=== PATIENT | female | born 1950 | race Caucasian/White ===

== ENCOUNTER 2017-01-08 18:40 | Emergency (ER) | payer MEDICARE, OTHER ==
[~2017-01-08] VITALS: Ht 154.9 cm; Wt 47.0 kg
[~2017-01-08 18:40] MED LIST: ASPI81TA82 PO; CARV6.25 PO; LEVA0.6316; LISI-357 PO; SIMV10 PO; SPIRCAP INH; TYLE500T PO; XOPEAER4 INH
[2017-01-08 18:42] VITALS: BP 198/116; PULSE 84; RESP 19; TEMP 98.5; O2SAT 99
[2017-01-08 19:03] VITALS: BP 167/97; PULSE 76; RESP 20; O2SAT 98
[2017-01-08] MEDS ORDERED: TIOT1AER2 INH (19:11)
[2017-01-08] MEDS ORDERED: ASPI81CH CHEW (19:11)
[2017-01-08] MEDS ORDERED: CLON0.1T PO (19:11)
[2017-01-08] MEDS ORDERED: ALPR.25 PO (19:11)
[2017-01-08] MEDS ORDERED: LISI-515 PO (19:11)
[2017-01-08] MEDS ORDERED: PRAV40TA2 PO (19:11)
--- NOTE | 2017-01-08 20:01 | PD ---
HPI Chief Complaint: Hypertension Time Seen by Provider: 19:46 Travel History International Travel<30 days: No Contact w/Intl Traveler<30days: No Traveled to known affect area: No History of Present Illness HPI 66 y/o female presents with elevated blood pressure as an outpatient. She states she called her doctor and they advised her to increase her lisinopril from 10mg twice a day to 20mg twice a day and use her clonidine as needed. she states she took the higher dose of lisinopril and her pressure was still up so she took the clonidine and her friend wanted her to get checked out. Here her pressure is better and she denies any concerns now or when her pressure was higher. She states 2 years ago she had a normal heart catheter and follows with dr matamoros regularly. quality is elevated. severity at home in the 200s PFSH Past Medical History Hx Anticoagulant Therapy: Yes (ASA 81MG) Heart Rhythm Problems: No Cancer: Yes (left/ lt mast) Cardiovascular Problems: Yes (HTN) High Cholesterol: Yes Chest Pain: Yes Congestive Heart Failure: No COPD: Yes Diabetes: No Diminished Hearing: No Endocrine: No Genitourinary: No Hypertension: Yes Musculoskeletal: No Neurologic: No Psychiatric: No Reproductive: No Respiratory: Yes Past Surgical History Hysterectomy: Yes Mastectomy: Yes (left) Tonsillectomy: Yes Other Surgery: Yes (breast augmentation) Social History Alcohol Use: No (Rarely) Tobacco Use: Yes (1 PPD) Substance Use: No Allergies-Medications (Allergen,Severity, Reaction): Coded Allergies: codeine (Unverified Allergy, Severe, Rash, 01/08/17) Reported Meds & Prescriptions Reported Meds & Active Scripts Active Aspir-81 (Aspirin) 81 Mg Tab 81 Mg PO DAILY Reported Clonidine (Clonidine HCl) 0.1 Mg Tab 0.1 Mg PO TID PRN Xanax (Alprazolam) 0.25 Mg Tab 0.25 Mg PO DAILY PRN Aspirin 81 Mg Chew 81 Mg CHEW DIRECTED Spiriva Respimat Inh (Tiotropium Inh) 1.25 Mcg/Act Aero 1 Puff INH DAILY 1.25 mcg = 1 inhalation Pravastatin 40 Mg Tab 40 Mg PO HS Lisinopril 20 Mg Tab 20 Mg PO BID Xopenex (Levalbuterol Hydrochloride) 0.63 Mg/3 Ml Neb 1 Xopenex Hfa (Levalbuterol) 15 Gm Aero 2 Puff INH Q4 Acetaminophen 500 Mg Tab 500 Mg PO Q6H Lisinopril 5 mg (Lisinopril) 5 Mg Tab 1 Tab PO BID Coreg 6.25 mg (Carvedilol) 6.25 Mg Tab 1 Tab PO BID Simvastatin 10 mg (Simvastatin) 10 Mg Tab 10 Tab PO DAILY Spiriva Handihaler (Tiotropium [place]) 18 Mcg Cap 1 Puff INH DAILY DO NOT SWALLOW CAPSULES Review of Systems Except as stated in HPI: all other systems reviewed are Neg Physical Exam Narrative GENERAL: Well-nourished, well-developed patient. SKIN: Warm and dry. HEAD: Normocephalic and atraumatic. EYES: No injection or drainage. ENT: No nasal drainage noted. NECK: Supple, trachea midline. CARDIOVASCULAR: Regular rate and rhythm RESPIRATORY: Breath sounds equal bilaterally. No accessory muscle use. GASTROINTESTINAL: Abdomen soft, non-tender, nondistended. EXTREMITIES: No edema. NEUROLOGICAL: Awake and alert. Motor and sensory grossly within normal limits. Normal speech. Data Data Last Documented VS Vital Signs Date Time Temp Pulse Resp B/P (MAP) Pulse Ox O2 Delivery O2 Flow Rate FiO2 01/08/17 20:18 75 16 138/81 (100) 97 Blow-by 01/08/17 18:42 98.5 MDM Medical Decision Making Medical Screen Exam Complete: Yes Emergency Medical Condition: Yes Medical Record Reviewed: Yes (pmh confirmed) Differential Diagnosis elevated pressure, machine error, renal dysfunction... Narrative Course lengthy discussion with patient and states recently had labwork at the end of last month that was normal and wanting to go now that her pressure is better here, given she has no symptoms she can go and monitor her blood pressure, given return instructions as she is not wanting further testing her Diagnosis Primary Impression: Hypertension Qualified Codes: I10 - Essential (primary) hypertension Patient Instructions: General Instructions Additional Instructions: keep blood pressure log, return as needed, follow with primary tommorrow Med/Other Pt SpecificInfo: No Change to Meds Disposition: 01 DISCHARGE HOME Condition: Stable Bette Lizarraga MD Jan 08, 2017 20:01
[2017-01-08 20:18] VITALS: BP 138/81
== END 2017-01-08 20:20 | disposition home or self-care (01) ==
LOC: NEPC 18:40
DX: I10 Essential (primary) hypertension (principal); F17.200 Nicotine dependence, unspecified, uncomplicated; J44.9 Chronic obstructive pulmonary disease, unspecified
CPT/HCPCS: 99281

== ENCOUNTER 2017-02-10 14:18 | Emergency (ER) | payer MEDICARE, OTHER ==
[~2017-02-10] VITALS: Ht 154.9 cm; Wt 47.0 kg
[~2017-02-10 14:18] MED LIST changes: +ALPR.25 PO; +ASPI81CH CHEW; +CLON0.1T PO; +LISI-515 PO; +PRAV40TA2 PO; +TIOT1AER2 INH
[2017-02-10 14:22] VITALS: BP 182/95; PULSE 68; RESP 16; TEMP 98.9; O2SAT 93
--- NOTE | 2017-02-10 14:27 | PD ---
Physical Exam Date Seen by Provider: Feb 10, 2017 Time Seen by Provider: 14:26 Narrative 66 yo female here for high BP. Per patient her head feels funny. No chest pain, but feels like her pressure is high. History of AAA of 3 cm. States her abdomen feels funny but had no pain or dizzyness. No SOB. No trauma. Vitals are stable in triage with elevated BP in the 180s. Awaiting bed placement. Data Data Last Documented VS Vital Signs Date Time Temp Pulse Resp B/P (MAP) Pulse Ox O2 Delivery O2 Flow Rate FiO2 02/10/17 14:22 98.9 68 16 182/95 (124) 93 Room Air [facility] Medical Record Reviewed: Yes Supervised Visit with RUFINO: No Fabricio De La Cruz Feb 10, 2017 14:27
[2017-02-10] MEDS ORDERED: LABETALOL HCL 100 MG/20 ML VIAL IV PUSH ONE ×2 (15:15→17:00)
[2017-02-10] MEDS ORDERED: ACETAMINOPHEN 325 MG TAB PO ONE (15:15)
--- NOTE | 2017-02-10 15:21 | PD ---
HPI Chief Complaint: Hypertension Time Seen by Provider: 15:05 Travel History International Travel<30 days: No Contact w/Intl Traveler<30days: No Traveled to known affect area: No History of Present Illness HPI This is a 66-year-old female with history of hypertension, hyperlipidemia, known 3 cm AAA, presents for evaluation of hypertension. She reports that recently her financial assistant Dr. Hernandez has been attempting to get her blood pressure under tighter control. Currently she is on a regimen of Coreg 25 mg bid as well as Cozaar which was prescribed 50 mg bid. She was recently discontinued from lisinopril. She takes clonidine as needed. She reports that she is currently using Cozaar only 50 mg once a day because her pharmacist told her that 50 mg twice a day was too much. She is complaining of a generalized head pressure which started yesterday. She reports that she gets this type of head pain when her blood pressure goes over 160 systolic which happens frequently. She denies nausea, vomiting, blurred vision, weakness, chest pain, shortness of breath. She has mild lower abdominal discomfort which she reports is from "nerves" but denies overt pain. She denies dysuria, flank pain, fevers or chills. She has no other complaints at this time. PFSH Past Medical History Hx Anticoagulant Therapy: Yes (ASA 81MG) Heart Rhythm Problems: No Cancer: Yes (left/ lt mast) Cardiovascular Problems: Yes (HTN) High Cholesterol: Yes Chest Pain: Yes Congestive Heart Failure: No COPD: Yes Diabetes: No Diminished Hearing: No Endocrine: No Genitourinary: No Hypertension: Yes Musculoskeletal: No Neurologic: No Psychiatric: No Reproductive: No Respiratory: Yes ?: Not Past Surgical History Hysterectomy: Yes Mastectomy: Yes (left) Tonsillectomy: Yes Other Surgery: Yes (breast augmentation) Social History Alcohol Use: No (Rarely) Tobacco Use: Yes (1 PPD) Substance Use: No Allergies-Medications (Allergen,Severity, Reaction): Coded Allergies: codeine (Unverified Allergy, Severe, Rash, 02/10/17) Reported Meds & Prescriptions Reported Meds & Active Scripts Active Aspir-81 (Aspirin) 81 Mg Tab 81 Mg PO DAILY Reported Clonidine (Clonidine HCl) 0.1 Mg Tab 0.1 Mg PO TID PRN Xanax (Alprazolam) 0.25 Mg Tab 0.25 Mg PO DAILY PRN Aspirin 81 Mg Chew 81 Mg CHEW DIRECTED Spiriva Respimat Inh (Tiotropium Inh) 1.25 Mcg/Act Aero 1 Puff INH DAILY 1.25 mcg = 1 inhalation Pravastatin 40 Mg Tab 40 Mg PO HS Lisinopril 20 Mg Tab 20 Mg PO BID Xopenex (Levalbuterol Hydrochloride) 0.63 Mg/3 Ml Neb 1 Xopenex Hfa (Levalbuterol) 15 Gm Aero 2 Puff INH Q4 Acetaminophen 500 Mg Tab 500 Mg PO Q6H Lisinopril 5 mg (Lisinopril) 5 Mg Tab 1 Tab PO BID Coreg 6.25 mg (Carvedilol) 6.25 Mg Tab 1 Tab PO BID Simvastatin 10 mg (Simvastatin) 10 Mg Tab 10 Tab PO DAILY Spiriva Handihaler (Tiotropium [place]) 18 Mcg Cap 1 Puff INH DAILY DO NOT SWALLOW CAPSULES Review of Systems Except as stated in HPI: all other systems reviewed are Neg Physical Exam Narrative GENERAL: Pleasant well-developed well-nourished female in no acute distress resting currently on hospital bed. Vital signs reviewed. SKIN: Warm and dry. HEAD: Atraumatic. Normocephalic. EYES: Pupils equal and round. No scleral icterus. No injection or drainage. ENT: No nasal bleeding or discharge. Mucous membranes pink and moist. NECK: Trachea midline. No JVD. CARDIOVASCULAR: Regular rate and rhythm. No murmur appreciated. RESPIRATORY: No accessory muscle use. Clear to auscultation. Breath sounds equal bilaterally. GASTROINTESTINAL: Abdomen soft, non-tender, nondistended. Hepatic and splenic margins not palpable. No palpable pulsatile masses. MUSCULOSKELETAL: No obvious deformities. No edema. NEUROLOGICAL: Awake and alert. No obvious cranial nerve deficits. Motor grossly within normal limits. Normal speech. PSYCHIATRIC: Appropriate mood and affect; insight and judgment normal. Data Data Last Documented VS Vital Signs Date Time Temp Pulse Resp B/P (MAP) Pulse Ox O2 Delivery O2 Flow Rate FiO2 02/10/17 17:14 79 16 180/94 (122) 98 Room Air 02/10/17 14:22 98.9 Orders Orders Chest, Pa & Lat (02/10/17 14:27) Complete Blood Count With Diff (02/10/17 15:13) Comprehensive Metabolic Panel (02/10/17 15:13) Lipase (02/10/17 15:13) Urinalysis - C+S If Indicated (02/10/17 15:13) Electrocardiogram (02/10/17 15:13) Ct Brain W/O Iv Contrast(Rout) (02/10/17 ) Labetalol Inj (Trandate Inj) (02/10/17 15:15) Acetaminophen (Tylenol) (02/10/17 15:15) Labetalol Inj (Trandate Inj) (02/10/17 17:00) Labs Laboratory Tests Test 02/10/17 15:50 White Blood Count 5.5 TH/MM3 Red Blood Count 3.77 MIL/MM3 Hemoglobin 12.9 GM/DL Hematocrit 36.3 % Mean Corpuscular Volume 96.3 FL Mean Corpuscular Hemoglobin 34.2 PG Mean Corpuscular Hemoglobin Concent 35.5 % Red Cell Distribution Width 13.6 % Platelet Count 302 TH/MM3 Mean Platelet Volume 7.2 FL Neutrophils (%) (Auto) 57.7 % Lymphocytes (%) (Auto) 30.6 % Monocytes (%) (Auto) 9.9 % Eosinophils (%) (Auto) 1.5 % Basophils (%) (Auto) 0.3 % Neutrophils # (Auto) 3.2 TH/MM3 Lymphocytes # (Auto) 1.7 TH/MM3 Monocytes # (Auto) 0.5 TH/MM3 Eosinophils # (Auto) 0.1 TH/MM3 Basophils # (Auto) 0.0 TH/MM3 CBC Comment DIFF FINAL Differential Comment Urine Color LIGHT-YELLOW Urine Turbidity CLEAR Urine pH 5.5 Urine Specific [place] 1.004 Urine Protein NEG mg/dL Urine Glucose (UA) NEG mg/dL Urine Ketones NEG mg/dL Urine Occult Blood TRACE Urine Nitrite NEG Urine Bilirubin NEG Urine Urobilinogen LESS THAN 2.0 MG/DL Urine Leukocyte Esterase NEG Urine RBC LESS THAN 1 /hpf Urine WBC LESS THAN 1 /hpf Microscopic Urinalysis Comment CULT NOT INDICATED Blood Urea Nitrogen 10 MG/DL Creatinine 0.69 MG/DL Random Glucose 83 MG/DL Total Protein 6.8 GM/DL Albumin 3.8 GM/DL Calcium Level 8.6 MG/DL Alkaline Phosphatase 58 U/L Aspartate Amino Transf (AST/SGOT) 9 U/L Alanine Aminotransferase (ALT/SGPT) 16 U/L Total Bilirubin 0.4 MG/DL Sodium Level 133 MEQ/L Potassium Level 3.7 MEQ/L Chloride Level 100 MEQ/L Carbon Dioxide Level 25.5 MEQ/L Anion Gap 8 MEQ/L Estimat Glomerular Filtration Rate 85 ML/MIN Lipase 102 U/L [facility] Medical Decision Making Medical Screen Exam Complete: Yes Emergency Medical Condition: Yes Medical Record Reviewed: Yes Interpretation(s) CONCLUSION: 1. No evidence of acute intracranial pathology. No masses are identified. Frontal and cerebellar atrophy CBC unremarkable CMP sodium 133 otherwise unremarkable Urinalysis trace blood otherwise unremarkable Differential Diagnosis Hypertensive urgency, intracranial hemorrhage, hypertensive emergency, aortic dissection, UTI Narrative Course The patient will be placed on ECG monitoring pulse oximetry. A chest x-ray was obtained in triage. A CT the brain and basic lab work And ordered. Physical examination is reassuring with normal neurologic examination and her abdomen is soft and nontender. The patient will be given 10 mg IV labetalol. She is requesting Tylenol for her cephalgia. The patient's blood pressure was persistently elevated so additional 20 mg labetalol ordered. The patient's laboratory imaging studies of the reviewed and found to be reassuring. Her headache appropriately improved with the administration of Tylenol. At this point, plan is to have the patient follow up with her financial assistant to discuss her medication dosing and titrate as needed. She is stable for discharge. Diagnosis Primary Impression: Cephalgia Additional Impression: Hypertension Additional Instructions: Follow-up with her financial assistant and primary care physician. Return for any emergent medical conditions. Med/Other Pt SpecificInfo: No Change to Meds Disposition: 01 DISCHARGE HOME Condition: Stable Guido Gamino Feb 10, 2017 15:21
--- NOTE | 2017-02-10 15:30 | RADRPT ---
EXAM DATE/TIME: 02/10/2017 14:51 [facility] COMPARISON: No previous studies available for comparison. INDICATIONS : Pain in upper abdomen, lower chest,and headache MEDICAL HISTORY : Aneurysm, abdominal. SURGICAL HISTORY : None. ENCOUNTER: Initial ACUITY: 1 day PAIN SCORE: 10/10 LOCATION: Bilateral chest abdomen FINDINGS: The cardiac silhouette is enlarged in transverse diameter. The lungs are free of acute parenchymal op acity. No effusions are identified. There is prominence of the aortic knob is with calcification taylor acteristic of atherosclerotic vascular disease. Calcified granuloma is present in the right lung. The re is multilevel degenerative change throughout the spine. CONCLUSION: 1. Cardiomegaly. No acute pulmonary disease. Richie Stanley MD on February 10, 2017 at 15:02 Board Certified Radiologist. This report was verified electronically.
[2017-02-10 16:17] LABS: AUTOMATED NEUTROPHIL # 3.2 TH/MM3 (1.8-7.7); BASOPHIL % 0.3 % (0.0-2.0); EOSINOPHIL # 0.1 TH/MM3 (0-0.4); EOSINOPHIL % 1.5 % (0.0-4.0); HEMATOCRIT 36.3 % (35.0-46.0); HEMO FLAGS DIFF FINAL; LYMPH % 30.6 % (9.0-44.0); LYMPHOCYTE # 1.7 TH/MM3 (1.0-4.8); MEAN CELL VOLUME 96.3 FL (80.0-100.0); MEAN CORPUSCULAR HEMOGLOBIN 34.2 PG (27.0-34.0); MEAN CORPUSCULAR HGB CONC 35.5 % (32.0-36.0); MONO % 9.9 % (0.0-8.0); NEUT % 57.7 % (16.0-70.0); PLATELET COUNT 302 TH/MM3 (150-450); RED BLOOD COUNT 3.77 MIL/MM3 (4.00-5.30); RED CELL DISTRIBUTION WIDTH 13.6 % (11.6-17.2); WHITE BLOOD COUNT 5.5 TH/MM3 (4.0-11.0)
[2017-02-10 16:28] LABS: BLOOD, URINE TRACE (NEG); GLUCOSE,URINE NEG (NEG); KETONE, URINE NEG (NEG); NITRITE,URINE NEG (NEG); PH, URINE 5.5 (5.0-8.5); URINE COLOR LIGHT-YELLOW (YELLW/STRAW)
[2017-02-10 16:30] LABS: COMMENT (UR) CULT NOT INDICATED; CULTURE IF INDICATED CULT NOT INDICATED
--- NOTE | 2017-02-10 16:43 | RADRPT ---
EXAM DATE/TIME: 02/10/2017 16:24 [facility] COMPARISON: No previous studies available for comparison. INDICATIONS : Increase blood pressure,headache RADIATION DOSE: 29.34 CTDIvol (mGy) MEDICAL HISTORY : Hypertension. Cardiovascular disease Chronic obstructive pulmonary disease.breast cancer SURGICAL HISTORY : Nephrectomy, left. Hysterectomy. ENCOUNTER: Initial ACUITY: 1 day PAIN SCALE: 4/10 LOCATION: cranial TECHNIQUE: Multiple contiguous axial images were obtained of the head. Using automated exposure control and adj ustment of the mA and/or kV according to patient size, radiation dose was kept as low as reasonably a chievable to obtain optimal diagnostic quality images. DICOM format image data is available electro nically for review and comparison. FINDINGS: There is no evidence of acute cortical infarction, acute hemorrhage, mass effect or midline shift. Th ere is diffuse cerebellar and frontal atrophy. Bone windows are unremarkable. CONCLUSION: 1. No evidence of acute intracranial pathology. No masses are identified. Frontal and cerebellar atro phy Richie Stanley MD on February 10, 2017 at 16:40 Board Certified Radiologist. This report was verified electronically.
[2017-02-10 16:44] LABS: ALT (GPT) 16 U/L (10-53); ANION GAP 8 MEQ/L (5-15); AST (GOT) 9 U/L (15-37); BICARBONATE 25.5 MEQ/L (21.0-32.0); BLOOD UREA NITROGEN 10 MG/DL (7-18); CHLORIDE 100 MEQ/L (98-107); GLOMERULAR FILTRATION RATE 85 ML/MIN (>89); POTASSIUM 3.7 MEQ/L (3.5-5.1); SODIUM (NA) 133 MEQ/L (136-145)
[2017-02-10 16:47] LABS: ALKALINE PHOSPHATASE 58 U/L (45-117); TOTAL BILIRUBIN ADULT 0.4 MG/DL (0.2-1.0)
[2017-02-10 16:53] VITALS: BP 192/101; PULSE 77; RESP 16; O2SAT 99
[2017-02-10 17:14] VITALS: BP 180/94; PULSE 79; RESP 16; O2SAT 98
[2017-02-10] MEDS ORDERED: LOSARTAN 50 MG TAB PO ONE (17:30)
[2017-02-10] MEDS ORDERED: CARVEDILOL 12.5 MG TAB PO ONE (17:30)
[2017-02-10 18:18] VITALS: BP 190/80; PULSE 77; RESP 16; O2SAT 100
--- NOTE | 2017-02-11 23:52 | EKG ---
Date Performed: 02/10/2017 Time Performed: 16:21:05 PTAGE: 66 years EKG: Sinus rhythm POSSIBLE LEFT ATRIAL ENLARGEMENT NON-SPECIFIC ST/T WAVE CHANGES PREVIOUS TRACING : 11/17/2014 22.16 Compared to prior tracing no significant change DOCTOR: Bobby Smith Interpretating Date/Time 02/11/2017 23:51:48
== END 2017-02-10 18:40 | disposition home or self-care (01) ==
LOC: NEPE 14:18
DX: R51 Headache (principal); I10 Essential (primary) hypertension; E78.5 Hyperlipidemia, unspecified; F17.200 Nicotine dependence, unspecified, uncomplicated; Z79.82 Long term (current) use of aspirin; Z86.79 Personal history of other diseases of the circulatory system; Z85.3 Personal history of malignant neoplasm of breast; Z87.09 Personal history of other diseases of the respiratory system
CPT/HCPCS: 70450; 71020; 80053; 81001; 83690; 85025; 93005; 96374; 96376